=== PATIENT | male | born 1970 | race Caucasian/White ===

== ENCOUNTER 2016-08-12 07:48 | Outpatient (CLI) ==
[2016-05-21 08:44] VITALS: BMI 20.7
[2016-08-12 08:09] LABS: BASOPHILS # (AUTO) 0.1 K/uL (0-0.2); EOSINOPHILS # (AUTO) 0.5 K/ul (0.0-0.7); EOSINOPHILS % (AUTO) 7.4 % (0.0-7.0); HEMATOCRIT 40.5 % (42.0-52.0); HEMOGLOBIN 13.2 g/dl (14.0-18.0); IMMATURE GRANULOCYTE % (AUTO) 0.4 % (0.0-5.0); LYMPHOCYTES # (AUTO) 1.8 K/uL (0.60-3.4); LYMPHOCYTES % (AUTO) 25.9 (10.0-50.0); MEAN CORPUSCULAR HEMOGLOBIN 30.6 pg (27.0-31.0); MEAN CORPUSCULAR HGB CONC 32.6 (31.8-35.4); MONOCYTES # (AUTO) 0.5 K/uL (0.4-2.0); MONOCYTES % (AUTO) 7.4 (0-10); NEUTROPHILS % (AUTO) 57.9; PLATELET COUNT 277 10^3/uL (140-440); RED BLOOD COUNT 4.31 10^6/ul (4.70-6.10)
[2016-08-12 08:28] LABS: BILIRUBIN,URINE Negative (NEGATIVE); KETONES,URINE Negative (NEGATIVE); LEUKOCYTE ESTERASE ,URINE Negative (NEGATIVE); NITRITE,URINE Negative (NEGATIVE); PH,URINE 5.5 (5-9); PROTEIN,URINE Negative (NEGATIVE); URINE, BLOOD 1+ (NEGATIVE)
[2016-08-12 08:34] LABS: ADD URINE MICROSCOPIC YES
[2016-08-12 08:41] LABS: ALBUMIN 3.9 g/dL (3.4-5.0); ALBUMIN/GLOBULIN RATIO 1.3; ANION GAP 13.4; BILIRUBIN,TOTAL 0.31 mg/dL (0.00-1.20); BUN/CREATININE RATIO 22.66; CALCIUM 9.2 mg/dL (8.2-10.2); CHOL/HDL RATIO 4.8 (4.5-6.4); CREATININE 0.75 mg/dL (0.60-1.10); TOTAL PROTEIN 6.9 g/dL (6.4-8.2)
[2016-08-12 08:56] LABS: POTASSIUM 6.4 mmol/L (3.5-5.1)
== END 2016-08-12 07:49 | disposition home or self-care (01) ==
LOC: LAB 07:48
PROVIDERS: ATTEND Family Medicine
DX: E78.5 Hyperlipidemia, unspecified (principal); K21.9 Gastro-esophageal reflux disease without esophagitis; G31.2 Degeneration of nervous system due to alcohol
CPT/HCPCS: 36415; 80053; 80061; 81001; 85025

== ENCOUNTER 2016-08-16 11:23 | Outpatient (CLI) ==
[2016-05-21 08:44] VITALS: BMI 20.7
[2016-08-16 12:14] LABS: ALBUMIN 4.5 g/dL (3.4-5.0); ALBUMIN/GLOBULIN RATIO 1.36; ANION GAP 14.1; BILIRUBIN,TOTAL 0.42 mg/dL (0.00-1.20); BUN/CREATININE RATIO 13.92; CALCIUM 9.9 mg/dL (8.2-10.2); CREATININE 0.79 mg/dL (0.60-1.10); POTASSIUM 5.1 mmol/L (3.5-5.1); TOTAL PROTEIN 7.8 g/dL (6.4-8.2)
--- NOTE | 2016-08-16 13:21 | DI ---
EXAM: PA and lateral views of the chest HISTORY: Abnormal labs, dizziness COMPARISON: 07/06/2014 FINDINGS: The patient is rotated to the right. A 6 mm nodular density projects over the right lung base. No fo heladio consolidation, pleural effusion or pneumothorax is seen. The cardiomediastinal silhouette is within normal limits. Degenerative changes of the left AC joint are seen. IMPRESSION: No acute cardiopulmonary findings. 5 mm right basilar nodular density could represent a nipple shadow or pulmonary nodule. Follow-up c hest x-ray with nipple markers including PA and shallow oblique views is recommended.
== END 2016-08-16 11:24 | disposition home or self-care (01) ==
LOC: LAB 11:23
PROVIDERS: ATTEND Family Medicine
DX: E87.5 Hyperkalemia (principal); R42 Dizziness and giddiness
CPT/HCPCS: 36415; 80053; 93005; 93010

== ENCOUNTER 2016-08-19 08:32 | Outpatient (CLI) ==
[2016-05-21 08:44] VITALS: BMI 20.7
--- NOTE | 2016-08-19 10:01 | CT ---
EXAM: CT chest with contrast. HISTORY: Weight loss. Abnormal chest x-ray. COMPARISON: Chest x-ray 08/16/2016. Chest CT 07/06/2014. TECHNIQUE: Multiple axial images of the chest were obtained following intravenous administration of 75 mL of Omnipaque 350, low osmolar. Images were reformatted in the sagittal and coronal planes. FINDINGS: Nonenlarged axillary, mediastinal and hilar lymph nodes are present. Heart size is peter l. There is a trace amount of pericardial fluid. Atherosclerotic calcifications are present. There is linear consolidation within the left upper lobe extending from the posterior apex to the li ngula anteriorly which is new from prior examination. The lungs are otherwise clear without pleural effusion or pneumothorax. Limited images of the upper abdomen demonstrate a right renal cyst measuring up to 3 cm. No acute o sseous abnormality detected. IMPRESSION: 1. No pulmonary nodules seen to correspond recent radiograph, which is most likely a nipple shadow. 2. Large area of subsegmental atelectasis in the left lung. Consider a follow-up CT in 3 months fo r reassessment.
== END 2016-08-19 08:33 | disposition home or self-care (01) ==
LOC: RAD 08:32
PROVIDERS: ATTEND Family Medicine
DX: R63.4 Abnormal weight loss (principal); R53.1 Weakness; R42 Dizziness and giddiness; G31.2 Degeneration of nervous system due to alcohol

== ENCOUNTER 2016-10-24 07:29 | Outpatient (CLI) ==
[2016-05-21 08:44] VITALS: BMI 20.7
--- NOTE | 2016-10-24 08:44 | CT ---
EXAM: CT of the head without contrast History: Transit ischemic attack. Comparison: Head CT 12/21/2015 Technique: Multiplanar CT images through the head were obtained without the administration of IV co ntrast Findings: The visualized paranasal sinuses are clear in general. Stable large chronic left mastoid effusion. No acute calvarial abnormalities. Intracranially the ventricular and cisternal spaces are stable. No midline shift. No hydrocephalou s. No acute intracranial hemorrhage or abnormal extraaxial fluid collections. Extensive periventri cular and subcortical white matter hypodensities, similar to the prior study. Impression: 1. No acute intracranial hemorrhage. 2. Extensive periventricular and subcortical white matter hypodensities, similar to the prior study and most compatible with chronic small vessel ischemic disease but could obscure infarction. Consi jim correlation with brain MRI.
--- NOTE | 2016-10-24 08:47 | DI ---
EXAM: Lumbar spine five views HISTORY: Low back pain COMPARISON: 09/30/2009 TECHNIQUE: Five views lumbar spine were performed including oblique views FINDINGS: Sacroiliac joints intact. Sacral arcuate lines intact. Transitional vertebral anatomy a t the lumbosacral junction on the left. Vertebral bodies normal in height. No fracture. No sublux ation. Mild intervertebral disc space narrowing L4-L5. Moderate intervertebral disc space narrowin g L5-S1. Facet arthrosis in the lower lumbar spine. IMPRESSION: Chronic discogenic degenerative disease and facet arthrosis.
--- NOTE | 2016-10-24 08:47 | CT ---
EXAM: CT soft tissue neck without contrast HISTORY: Concern for stroke. COMPARISON: CT head same day TECHNIQUE: Serial axial images of the neck were obtained without contrast. These were viewed in mu ltiple planes. FINDINGS: Limited views of the intracranial contents are better visualized on same day CT head. Orb ital globes retrobulbar structures are normal. The paranasal sinuses are clear. The mastoid air ce lls demonstrate changes on the left better described on same day CT head. Evaluation of the vessels and arteries is very limited due to lack of contrast. There are few scatt ered nonpathologically enlarged lymph nodes. The parotid glands and submandibular glands are unrema rkable. The thyroid is unremarkable. The lung apices are clear. The osseous structures demonstrat e mild degenerative disease IMPRESSION: 1. Evaluation is very limited due to lack of contrast. No significant atherosclerotic disease is i dentified. 2. Mild degenerative disease of the cervical spine. 3. Intracranial contents and paranasal sinus changes are better evaluated on same day CT head.
== END 2016-10-24 07:30 | disposition home or self-care (01) ==
LOC: RAD 07:29
PROVIDERS: ATTEND Physician Assistant
DX: M54.5 Low back pain (principal); Z86.73 Personal history of transient ischemic attack (TIA), and cerebral infarction without residual deficits

== ENCOUNTER 2016-11-29 15:41 | Outpatient (RCR) ==
[2016-05-21 08:44] VITALS: BMI 20.7
== END 2016-12-02 ==
PROVIDERS: ATTEND Physician Assistant
DX: M62.81 Muscle weakness (generalized) (principal)

== ENCOUNTER 2016-12-29 14:00 | Outpatient (RCR) ==
[2016-05-21 08:44] VITALS: BMI 20.7
--- NOTE | 2016-12-13 09:58 | RS.OPPTEV2 ---
Date of Note: 12/12/16 Visit #: 1 Date of Evaluation: 12/12/16 Payer Source: Medicaid Treatment Diagnosis: Muscle Weakness History of Condition/Mechanism of Injury:: Patient and his reports that he has had progressive weakness in his arms and legs over the last two years. Reports more frequent falls as he has gotten weaker. Prior Level of Function.....Patient was independent with: ADL's, Self Care, Ambulation/Mobility, Community Integration/Access Functional Limitations: Self Care, ADL's, Reaching, Pushing, Pulling, Lifting, Carrying, Sitting, Standing, Bending, Squatting, Ambulation, Community Access/ Integration Current Subjective/complaints:: Patient reports weakness throughout his arms and legs. States he has recently started turning out his ankles when he walks. States the left LE seems to be worse than the right. He states he has not had a recent stroke. His reports he had a stroke when he was [age] years of age. Mr. Krishnan states he does not use anything to walk with. He has had many falls. He has difficulty ascending and descending stairs. They have 3-4 concrete steps without a rail, at the entrance of their trailer. He has to go down the steps on his bottom. Their bed is on the floor and he has difficulty getting up from the bed. He has difficulty getting out of a chair or sofa, depending on the seat height. He denies tingling or numbness in the LE's. States the legs do buckle at times. His states he has back pain 24 hours a day. He reports increased back pain and LE weakness with standing. Reports heat seems to make him weaker. Treatment Side (optional): Bilateral Medical History Medical History: CVA/TIA (at 1 years old) Hx Home Medications: Lipitor, Zantac Patient's Goals: His goal is to gain strength and improve his safety with walking. Functional Outcome Measure LE Functional Scale: 29 (29/80=63.75% impairment) - G Codes & Severity Modifier G Codes & Modifier: NA Source of G Code score: NA Observation - Observation Inspection: Mr. Krishnan presents to the department appearing fraile and with significant muscle atrophy throughout the UE's. Posture: Forward Head, Rounded Shoulders, Increased Thoracic Kyphosis, Posterior Pelvic Tilt Gait - Gait Pattern Gait Comments: Mr. Krishnan's gait is ataxic. He ambulates without an assistive device into the department. He demonstrates asymmetrical step and stride lengths. Demonstrates poor coordination of movement with ambulation. General Range of Motion: Bilateral UE shoulder flexion and abduction to 95 degrees, full AROM of bilateral elbows and wrists. Bilateral hands exhibit atrophy, he exibits active flexion and extension, but he has to use the other hand to put his fingers into end range flexion to make a fist. Patient is able to complete 75% of normal motion actively. He demonstrates full PROM with no spasticity. Muscle Strength: Bilateral UE strength is generally 3+ to 4-/5 throughout. Neither hand registers with rail splitter strength testing. Bilateral hip strength generally -4/5. Left knee and ankle 3+/5. Right knee 4/5, ankle 4-/5. Trunk strength 4/5. Sensation - Sensation Right Upper Extremity: Intact/Normal Left Upper Extremity: Intact/Normal Right Lower Extremity: Intact/Normal Left Lower Extremity: Intact/Normal Balance - Sitting Balance Static Sitting Balance: Fair (+) Dynamic Sitting Balance: Fair (+) - Standing Balance Static Standing Balance: Fair (-) Dynamic Standing Balance: Fair (-) Coordination - Tests Bilateral Finger to Nose: Moderate Deviation Heel to Santana: Moderate Deviation Toe Tapping: Mild Deviation Additional Comments: Additional Comments: Patient given a straight cane at the proper height for him to use with ambulation. Patient demonstrates much more steady gait with use of cane. Interventions - Exercise/Activities/Manual Therapy Exercises/Activities: No exercises given today. Manual Therapy: NA - Charges Total Direct Minutes: 50 min Total Treatment Time: 50 mins Procedures billed for this date of service:: [facility] Assessment Assessment: Mr. Krishnan presents to therapy with a diagnosis of generalized muscle weakness. He and his report progressive muscle weakness and decline in his functional ability over the last two years. He falls frequently. He exibits generalized muscle wasting throughout both UE's and displays weakness throughout the UE's, trunk, and LE's. His transfers and ambulation are difficult for him due to significant weakness and decreased muscle control and coordination. He exhibits most likely, a neurological progressive process, that has not been diagnosed. He will benefit from education on safety with all mobility and exercises to improve strength throughout to increase his independence and safety with transfers and ambulation. Patient Education: Education of diagnosis, Body/Joint mechanics, Home Safety, Activity Modification, Education of Plan of Care Rehab Potential: Fair Short Term Goals Goal #1: Static standing posture improved to Fair. Goal to be met by: 12/27/16 Goal #2: Bilateral hip strength 4/5. Goal to be met by: 12/27/16 Goal #3: Bilateral ankle strength 4/5. Goal to be met by: 12/27/16 [facility] Goals Goal #1: Pt knows HEP and to continue ex's to maintain functional level at D/C. Goal to be met by: 02/11/17 Goal #2: Pt to amb. with AAD with good safety, community distances. Goal to be met by: 02/11/17 Goal #3: Pt to report no falls with ambulation. Goal to be met by: 02/11/17 Goal #4: Muscle strength improved for pt to perform ADL's with min. difficulty. Goal to be met by: 02/11/17 Plan - Treatment to be Provided Procedures: Therapeutic Exercises, Therapeutic Activity, Gait Training, Neuromuscular Rehab, Patient Education Modalities: Electrical Stimulation (for neuromuscular facilitation) - Treatment Plan Frequency: 3 X week Duration: 8 weeks ORDER # VISITS AND/OR THROUGH DATE: 02/11/17 - Treatment Code (1) Muscle weakness (generalized) Comments: M62.81 (2) Gait abnormality Comments: R26.9 (3) Decreased coordination Comments: R27.9 (4) Impaired functional mobility, balance, gait, and endurance Comments: Z74.09
--- NOTE | 2016-12-20 15:24 | RS.OPPTDN ---
Subjective Date of Note: 12/15/16 Visit #: 2 Date of Evaluation: 12/12/16 Payer Source: Medicaid Treatment Diagnosis: Muscle Weakness Current Subjective/complaints:: Patient's says Gerardo is willing to do any exercise to make him stronger. She says he struggles to get up off of the floor and she has to help him with many tasks at home. She says he does use the "hurrycane" that was loaned to him. Pain Assessment - Pain Description Pain Location: does not report Interventions - Exercise/Activities/Manual Therapy Exercises/Activities: Patient begins with supine exercises of: QS, SAQ, alternate LE lift, bridging, DF with red tband, trunk rotation all 2x10. Sitting: LAQ, hip flexion, toe taps, 1# wand for bilateral shoulder flexion, yellow tband for scap retraction, and shoulder shrugs. All x 10 reps. Total minutes of Exercise: 32 Manual Therapy: NA - Charges Total Direct Minutes: 32 Total Treatment Time: 32 Procedures billed for this date of service:: ex2 Assessment: Patient very cooperative with HEP and very willing to perform any activity to improve his condition. His is very involved and assists him with bed mobs/transfers since his mattress is on the floor. He was able to perform all therex slowly and denies difficulty with exception of general muscle fatigue. He ambulates with hurrycane in the R hand and needs x 1 for sit to stand. Patient Education: Education of diagnosis, Body/Joint mechanics, Home Exercise Program, Home Safety, Activity Modification, Education of Plan of Care Patient demonstrates compliance with HEP?: Yes Short Term Goals Goal #1: Static standing posture improved to Fair. Goal to be met by: 12/27/16 Goal #2: Bilateral hip strength 4/5. Goal to be met by: 12/27/16 Goal #3: Bilateral ankle strength 4/5. Goal to be met by: 12/27/16 [facility] Goals Goal #1: Pt knows HEP and to continue ex's to maintain functional level at D/C. Goal to be met by: 02/11/17 Goal #2: Pt to amb. with AAD with good safety, community distances. Goal to be met by: 02/11/17 Goal #3: Pt to report no falls with ambulation. Goal to be met by: 02/11/17 Goal #4: Muscle strength improved for pt to perform ADL's with min. difficulty. Goal to be met by: 02/11/17 Plan PLAN OF CARE EXPIRES ON:: 02/11/17 ORDER # VISITS AND/OR THROUGH DATE: 02/11/17 PLAN: Progress Exercises
--- NOTE | 2016-12-20 15:41 | RS.OPPTDN ---
Subjective Date of Note: 12/20/16 Visit #: 3 Date of Evaluation: 12/12/16 Payer Source: Medicaid Treatment Diagnosis: Muscle Weakness Current Subjective/complaints:: Patient says he was able to get up off of his bed (on the floor) without the help from his . His says she sees he is walking faster and better now and is working on exercises several times per day. Pain Assessment - Pain Description Pain Location: does not report Interventions - Exercise/Activities/Manual Therapy Exercises/Activities: Patient begins with supine exercises of: QS, SAQ added 1# , alternate LE lift added 1# each leg, bridging, DF with red tband, ham curls with red tband, trunk rotation with red tband, SLR all 2x10. Sitting: LAQ 1#, hip flexion1#, toe taps, 2# wand for bilateral shoulder flexion, yellow tband for scap retraction, and shoulder shrugs. All x 10 reps. Discussion and instruction on HEP with patient and . Total minutes of Exercise: 38 Manual Therapy: NA - Charges Total Direct Minutes: 38 Total Treatment Time: 38 Procedures billed for this date of service:: ex3 Assessment: Patient kirstin improved function at home with bed mobs and transfers. Observable improvement in waiting room today with getting up from chair x 1 time with less difficulty. He ambulates more steadily back to our department and was able to progress with some weight with activities today. Will advance to stationary bike and UBE next session. Patient's very pleased. Patient Education: Education of diagnosis, Body/Joint mechanics, Home Exercise Program, Home Safety, Activity Modification, Education of Plan of Care Patient demonstrates compliance with HEP?: Yes Short Term Goals Goal #1: Static standing posture improved to Fair. Goal to be met by: 12/27/16 Goal #2: Bilateral hip strength 4/5. Goal to be met by: 12/27/16 Goal #3: Bilateral ankle strength 4/5. Goal to be met by: 12/27/16 [facility] Goals Goal #1: Pt knows HEP and to continue ex's to maintain functional level at D/C. Goal to be met by: 02/11/17 Goal #2: Pt to amb. with AAD with good safety, community distances. Goal to be met by: 02/11/17 Goal #3: Pt to report no falls with ambulation. Goal to be met by: 02/11/17 Goal #4: Muscle strength improved for pt to perform ADL's with min. difficulty. Goal to be met by: 02/11/17 Plan PLAN OF CARE EXPIRES ON:: 02/11/17 ORDER # VISITS AND/OR THROUGH DATE: 02/11/17 PLAN: Progress Exercises
--- NOTE | 2016-12-22 15:08 | RS.OPPTDN ---
Subjective Date of Note: 12/22/16 Visit #: 4 Date of Evaluation: 12/12/16 Payer Source: Medicaid Treatment Diagnosis: Muscle Weakness Current Subjective/complaints:: Patient's says Gerardo continues to work on HEP, plus other exercises that he does with his arms. Gerardo denies falls since he has received his cane. Pain Assessment - Pain Description Pain Location: does not report Interventions - Exercise/Activities/Manual Therapy Exercises/Activities: Patient begins with supine exercises of: QS, SAQ added 1 1/2#, alternate LE lift added 1 1/2# each leg, bridging, DF with red tband, ham curls with red tband, trunk rotation with red tband, SLR all 2x10. Sitting: LAQ 1 1/2#, hip flexion 1 1/2#, toe taps, 2# wand for bilateral shoulder flexion , red tband for scap retraction, and shoulder shrugs. All x 10 reps. Red tband bilateral shoulder horizontal abd x 10 reps. Stationary bike x 5 mins for /retro with assistance for foot pedals (feet coming out intermittently and cues to scoot back into seat several times). Total minutes of Exercise: 38 Manual Therapy: NA - Charges Total Direct Minutes: 38 Total Treatment Time: 38 Procedures billed for this date of service:: ex3 Assessment: Patient progressing with all exercises well. Cues required on stationary bike to continue to scoot back and to repositioning feet into pedals. Patient Education: Education of diagnosis, Body/Joint mechanics, Home Exercise Program, Home Safety, Activity Modification, Education of Plan of Care Patient demonstrates compliance with HEP?: Yes Short Term Goals Goal #1: Static standing posture improved to Fair. Goal to be met by: 12/27/16 Goal #2: Bilateral hip strength 4/5. Goal to be met by: 12/27/16 Goal #3: Bilateral ankle strength 4/5. Goal to be met by: 12/27/16 [facility] Goals Goal #1: Pt knows HEP and to continue ex's to maintain functional level at D/C. Goal to be met by: 02/11/17 Goal #2: Pt to amb. with AAD with good safety, community distances. Goal to be met by: 02/11/17 Goal #3: Pt to report no falls with ambulation. Goal to be met by: 02/11/17 Goal #4: Muscle strength improved for pt to perform ADL's with min. difficulty. Goal to be met by: 02/11/17 Plan PLAN OF CARE EXPIRES ON:: 02/11/17 ORDER # VISITS AND/OR THROUGH DATE: 02/11/17 PLAN: Progress Exercises
--- NOTE | 2016-12-27 15:48 | RS.OPPTDN ---
Subjective Date of Note: 12/27/16 Visit #: 5 Date of Evaluation: 12/12/16 Payer Source: Medicaid Treatment Diagnosis: Muscle Weakness Current Subjective/complaints:: Patient and continue to say Gerardo is improving with strength and bal with exercises. He is pleased with his progress. Pain Assessment - Pain Description Pain Location: does not report Interventions - Exercise/Activities/Manual Therapy Exercises/Activities: Patient begins with supine exercises of: QS, SAQ added 2# , alternate LE lift added 2# each leg, bridging, DF with green tband, ham curls with red tband, trunk rotation progressed to green tband, SLR (2x5)all 2x10. Sitting: LAQ 1 1/2#, hip flexion 1 1/2#,UBE x 5 mins for/retro. Stationary bike x 6 mins for/retro with frequent assistance for foot pedals (feet coming out intermittently and cues to scoot back into seat several times). Total minutes of Exercise: 38 Manual Therapy: NA - Charges Total Direct Minutes: 38 Total Treatment Time: 38 Procedures billed for this date of service:: ex3 Assessment: Patient progressing well with all supine therex and trunk exercises. He is advancing with bal at home and consistently performs HEP. He is ambulating around the department without cane and maintains bal well with increasing amb speed. Patient Education: Education of diagnosis, Body/Joint mechanics, Home Exercise Program, Home Safety, Activity Modification, Education of Plan of Care Patient demonstrates compliance with HEP?: Yes Short Term Goals Goal #1: Static standing posture improved to Fair. Goal to be met by: 12/27/16 Goal #2: Bilateral hip strength 4/5. Goal to be met by: 12/27/16 Goal #3: Bilateral ankle strength 4/5. Goal to be met by: 12/27/16 [facility] Goals Goal #1: Pt knows HEP and to continue ex's to maintain functional level at D/C. Goal to be met by: 02/11/17 Goal #2: Pt to amb. with AAD with good safety, community distances. Goal to be met by: 02/11/17 Goal #3: Pt to report no falls with ambulation. Goal to be met by: 02/11/17 Goal #4: Muscle strength improved for pt to perform ADL's with min. difficulty. Goal to be met by: 02/11/17 Plan PLAN OF CARE EXPIRES ON:: 02/11/17 ORDER # VISITS AND/OR THROUGH DATE: 02/11/17 PLAN: Progress Exercises
--- NOTE | 2016-12-29 15:02 | RS.OPPTDN ---
Subjective Date of Note: 12/29/16 Visit #: 6 Date of Evaluation: 12/12/16 Payer Source: Medicaid Treatment Diagnosis: Muscle Weakness Current Subjective/complaints:: Patient and state patient is working on HEP at home and patient feels he is getting stronger. C/c is weakness in the LE that prevents him from going up and down steps. Both report patient has to crawl on hands and knees to go up steps into house. Pain Assessment - Pain Description Pain Location: does not report Interventions - Exercise/Activities/Manual Therapy Exercises/Activities: Patient begins with supine exercises of: QS, SAQ 1 1/2#, alternate LE lift 1 1/2# each leg, bridging. Green theraband for DF, ham curls, and trunk rotation. SLR 2s/10reps each. Sitting: LAQ 1 1/2#, hip flexion 1 1/ 2#. Stationary bike x 4 1/2 mins for/retro with frequent assistance for foot pedals. Began step-up and down on 4" stepper board with use of handrail and min assist of one. Also forward lunge and push-off with foot on stepper board, 3s/ 5reps each. Total minutes of Exercise: 39mins Manual Therapy: NA HOME EXERCISE PROGRAM: QS, SLR, SAQ, LAQ, Green theraband for trunk rotation. - Objective Findings Observations,measurements,etc.: Patient demos marked quad weakness whle performing on stepper board. He "locks" knee into hyperextension when ascending or decending steps. Patient need verbal cues for safety as he is impulsive. - Charges Total Direct Minutes: 39mins Total Treatment Time: 39mins Procedures billed for this date of service:: EX3 Assessment: Discussed POC with PT and we will continue with POC to increase strength and safety with functional activities. Patient Education: Home Exercise Program, Home Safety, Activity Modification Patient demonstrates compliance with HEP?: Yes Short Term Goals Goal #1: Static standing posture improved to Fair. Goal to be met by: 12/27/16 Goal #2: Bilateral hip strength 4/5. Goal to be met by: 12/27/16 Goal #3: Bilateral ankle strength 4/5. Goal to be met by: 12/27/16 [employer] Goals Goal #1: Pt knows HEP and to continue ex's to maintain functional level at D/C. Goal to be met by: 02/11/17 Progress towards goal: Progressing Goal #2: Pt to amb. with AAD with good safety, community distances. Goal to be met by: 02/11/17 Goal #3: Pt to report no falls with ambulation. Goal to be met by: 02/11/17 Goal #4: Muscle strength improved for pt to perform ADL's with min. difficulty. Goal to be met by: 02/11/17 Plan PLAN OF CARE EXPIRES ON:: 02/11/17 ORDER # VISITS AND/OR THROUGH DATE: 02/11/17 PLAN: Progress Exercises
== END 2017-01-02 ==
PROVIDERS: ATTEND Physician Assistant
DX: M62.81 Muscle weakness (generalized) (principal)

== ENCOUNTER 2017-01-24 13:00 | Outpatient (RCR) ==
[2016-05-21 08:44] VITALS: BMI 20.7
--- NOTE | 2017-01-03 16:15 | RS.OPPTDN ---
Subjective Date of Note: 01/03/17 Visit #: 7 Date of Evaluation: 12/12/16 Payer Source: Medicaid Treatment Diagnosis: Muscle Weakness Current Subjective/complaints:: Patient says that he is not needing to use his cane in his home now. Reports he still has trouble going up/down steps, but where they were getting ready to move, it is level. He says he feels stronger and able to walk better. Patient's says he performs HEP several times daily. Pain Assessment - Pain Description Pain Location: does not report any pain Interventions - Exercise/Activities/Manual Therapy Exercises/Activities: Patient begins with Stationary bike x 7 mins for/retro with frequent assistance for foot pedals. Supine exercises of: QS, SAQ increased to 2#, alternate LE lift 2# each leg, bridging. Green theraband for DF , ham curls, and trunk rotation. SLR 2s/10reps each. Sitting: LAQ increased to 2#, hip flexion increased to 2#. UBE x 4 mins for/retro with 1# on each wrist. Continued with step-up and down on 4" stepper board with use of handrail and min assist of one. Also forward lunge and push-off with foot on stepper board, 3s/5reps each. Marching at railing 2x10, side stepping x 6, Total minutes of Exercise: 53 Manual Therapy: NA HOME EXERCISE PROGRAM: QS, SLR, SAQ, LAQ, Green theraband for trunk rotation. - Charges Total Direct Minutes: 53 Total Treatment Time: 53 Procedures billed for this date of service:: ex4 Assessment: Patient very compliant with HEP. He is progressing with standing/ bal exercises. Trunk strength is slightly better, but may improve with further consistent HEP. Patient Education: Education of diagnosis, Body/Joint mechanics, Home Exercise Program, Home Safety, Activity Modification, Education of Plan of Care Patient demonstrates compliance with HEP?: Yes Short Term Goals Goal #1: Static standing posture improved to Fair. Goal to be met by: 12/27/16 Progress towards Goal:: Progressing Goal #2: Bilateral hip strength 4/5. Goal to be met by: 12/27/16 Progress towards Goal:: Progressing Goal #3: Bilateral ankle strength 4/5. Goal to be met by: 12/27/16 Retail Loss Prevention Officer Goals Goal #1: Pt knows HEP and to continue ex's to maintain functional level at D/C. Goal to be met by: 02/11/17 Progress towards goal: Progressing Goal #2: Pt to amb. with AAD with good safety, community distances. Goal to be met by: 02/11/17 Progress towards goal: Progressing Goal #3: Pt to report no falls with ambulation. Goal to be met by: 02/11/17 Progress towards goal: Progressing Goal #4: Muscle strength improved for pt to perform ADL's with min. difficulty. Goal to be met by: 02/11/17 Plan PLAN OF CARE EXPIRES ON:: 02/11/17 ORDER # VISITS AND/OR THROUGH DATE: 02/11/17 PLAN: Progress Exercises
--- NOTE | 2017-01-05 15:10 | RS.CXNS ---
Date of scheduled appointment: 01/05/17 Type: Cancel Reason for Cancel/NS: no reason given
--- NOTE | 2017-01-10 16:04 | RS.OPPTDN ---
Subjective Date of Note: 01/10/17 Date of Evaluation: 12/12/16 Payer Source: Medicaid Treatment Diagnosis: Muscle Weakness Current Subjective/complaints:: Patient's says Gerardo was able to get in/out of the shower yesterday with significantly less difficulty. She says they will be moving to an apartment in which he will not have to ascend/descend steps and will be easier to Gerardo. Gerardo remains eager to further progress exercises. Pain Assessment - Pain Description Pain Location: reports back pain today Balance System Training - Level 2 Dynamic Weight Shifting #1 Training Mode: Weight Shift Skill Level (1-3): 1 Platform Stability Level (1-12): static Time: 1 to 1.5 mins Reps: 4 Interventions - Exercise/Activities/Manual Therapy Exercises/Activities: Patient begins with Stationary bike x 7 mins for/retro with frequent assistance for foot pedals. Began Balance [employer] [place] for weight shift laterally and anter/post x 3 sets of 1-1.5 mins each easy skill level. Limits of stability easy skill level. Standing at railing: marching, hip abd, shoulder shrugs and scap adduction AA, hip extension, side stepping along railing x 6, retro ambulation and exaggerated forward ambulation with hip flexion x 4 using railing support. Supine exercises of: QS, SAQ 2 1/2#, alternate LE lift 2 1/2# each leg, bridging. Green theraband for DF, ham curls, and trunk rotation. SLR 2s/10reps each. Sitting: LAQ increased to 2#, hip flexion increased to 2#. Total minutes of Exercise: 45 Manual Therapy: NA HOME EXERCISE PROGRAM: QS, SLR, SAQ, LAQ, Green theraband for trunk rotation. - Charges Total Direct Minutes: 45 Total Treatment Time: 45 Procedures billed for this date of service:: ex3 Assessment: Patient progressing to Balance [place] to assist with strengthening the quads for ant/software quality tester and laterally. He improved with score and understanding the concept as time passed, but was not able to shift his weight posteriorally without forward flexion at the trunk. When stepping off of the unit, he lowered himself onto the base with the L knee and then stood up with handles and assistance from NEIGHBORHOOD COORDINATOR. Patient Education: Education of diagnosis, Body/Joint mechanics, Home Exercise Program, Home Safety, Activity Modification, Education of Plan of Care Patient demonstrates compliance with HEP?: Yes Short Term Goals Goal #1: Static standing posture improved to Fair. Goal to be met by: 12/27/16 Progress towards Goal:: Progressing Goal #2: Bilateral hip strength 4/5. Goal to be met by: 12/27/16 Progress towards Goal:: Progressing Goal #3: Bilateral ankle strength 4/5. Goal to be met by: 12/27/16 Detention Goals Goal #1: Pt knows HEP and to continue ex's to maintain functional level at D/C. Goal to be met by: 02/11/17 Progress towards goal: Progressing Goal #2: Pt to amb. with AAD with good safety, community distances. Goal to be met by: 02/11/17 Progress towards goal: Progressing Goal #3: Pt to report no falls with ambulation. Goal to be met by: 02/11/17 Progress towards goal: Progressing Goal #4: Muscle strength improved for pt to perform ADL's with min. difficulty. Goal to be met by: 02/11/17 Plan PLAN OF CARE EXPIRES ON:: 02/11/17 ORDER # VISITS AND/OR THROUGH DATE: 02/11/17 PLAN: Progress Exercises
--- NOTE | 2017-01-13 15:19 | RS.OPPTDN ---
Subjective Date of Note: 01/13/17 Visit #: 8 Date of Evaluation: 12/12/16 Payer Source: Medicaid Treatment Diagnosis: Muscle Weakness Current Subjective/complaints:: Patient says he saw his neurosurgeon in regards to his back yesterday, but says he does not want to assess or treat him for his back until he is finished with PT. He does c/o back pain today during standing exercises. Pain Assessment - Pain Description Pain Location: reports back pain today Interventions - Exercise/Activities/Manual Therapy Exercises/Activities: Patient begins with Stationary bike x 7 mins for/retro with frequent assistance for foot pedals. Supine: SAQ 1# for LLE, 3# for R, bridging, trunk rotation with green tband, ball squeezes, Lower ab crunch. LAQ 1# LLE, 3# RLE x 15. Shoulder shrugs and UBE for/retro x 4 mins. Standing at railing: marching, hip abd, shoulder shrugs and scap adduction AA, hip extension, side stepping along railing x 6, retro ambulation and exaggerated forward ambulation with hip flexion x 4 using railing support. Step up/down board 2x4. Total minutes of Exercise: 40 Manual Therapy: NA HOME EXERCISE PROGRAM: QS, SLR, SAQ, LAQ, Green theraband for trunk rotation. - Charges Total Direct Minutes: 40 Total Treatment Time: 40 Procedures billed for this date of service:: ex3 Assessment: Patient progressing with dynamic exercises and trunk strengthening, but does remain with impulsiveness with transfers and amb. At times in the department, he amb independently. He maintains hyperextension to the R knee and more weakness overall to the hip, knee, and ankle in the L. He will have one more week of PT approved, then will follow up with MD regarding his back. Patient Education: Education of diagnosis, Body/Joint mechanics, Home Exercise Program, Home Safety, Activity Modification, Education of Plan of Care Patient demonstrates compliance with HEP?: Yes Short Term Goals Goal #1: Static standing posture improved to Fair. Goal to be met by: 12/27/16 Progress towards Goal:: Progressing Goal #2: Bilateral hip strength 4/5. Goal to be met by: 12/27/16 Progress towards Goal:: Progressing Goal #3: Bilateral ankle strength 4/5. Goal to be met by: 12/27/16 Skilled Nursing Goals Goal #1: Pt knows HEP and to continue ex's to maintain functional level at D/C. Goal to be met by: 02/11/17 Progress towards goal: Progressing Goal #2: Pt to amb. with AAD with good safety, community distances. Goal to be met by: 02/11/17 Progress towards goal: Progressing Goal #3: Pt to report no falls with ambulation. Goal to be met by: 02/11/17 Progress towards goal: Progressing Goal #4: Muscle strength improved for pt to perform ADL's with min. difficulty. Goal to be met by: 02/11/17 Plan PLAN OF CARE EXPIRES ON:: 02/11/17 ORDER # VISITS AND/OR THROUGH DATE: 02/11/17 PLAN: Progress Exercises
--- NOTE | 2017-01-17 14:19 | RS.OPPTDN ---
Subjective Date of Note: 01/17/17 Visit #: 10 Date of Evaluation: 12/12/16 Payer Source: Medicaid Treatment Diagnosis: Muscle Weakness Current Subjective/complaints:: Patient reports both knees popped yesterday while getting up from his chair. He says it did not cause him to fall. He and his both continue to say that he is improving with getting around at home and other ADLs. Pain Assessment - Pain Description Pain Location: reports back pain today Interventions - Exercise/Activities/Manual Therapy Exercises/Activities: Patient begins with Stationary bike x 6 mins for/retro with frequent assistance for foot pedals and prompting to go backwards. Supine : SAQ 1# for LLE, 3# for R, bridging, trunk rotation with green tband, ball squeezes, Lower ab crunch with 3# on RLE and 1# on LLE. LAQ 1# LLE, 3# RLE x 15. Red tband for L ankle DF/PF/EV/IV, Green for R ankle. Green tband for hip abd in hooklying 2x10. Shoulder shrugs and UBE for/retro x 4 mins with 2# on L UE and 3# on RLE. 2# wand exercises in sitting for shoulder flexion/ext and red tband for scap retraction with tactile cues on correctiveness. Alternate Toe taps. Leg press 15# 2x10 with cues to not fully extend the knees. 30# 2x10 reps. Total minutes of Exercise: 53 Manual Therapy: NA HOME EXERCISE PROGRAM: QS, SLR, SAQ, LAQ, Green theraband for trunk rotation. - Charges Total Direct Minutes: 53 Total Treatment Time: 53 Procedures billed for this date of service:: ex4 Assessment: Patient progressing slowly with all weights and bal, advancing with leg press, transfers more slowly and with slightly more caution. He maintains no falls since beginning therapy, however he has "lowered himself down" on the L knee (being his weak side) at PT window forgetting to switch sides onto the strong side. Patient Education: Education of diagnosis, Body/Joint mechanics, Home Exercise Program, Home Safety, Activity Modification, Education of Plan of Care Patient demonstrates compliance with HEP?: Yes Short Term Goals Goal #1: Static standing posture improved to Fair. Goal to be met by: 12/27/16 Progress towards Goal:: Met Goal #2: Bilateral hip strength 4/5. Goal to be met by: 12/27/16 Progress towards Goal:: Progressing Goal #3: Bilateral ankle strength 4/5. Goal to be met by: 12/27/16 Progress towards Goal:: Progressing Skilled Nursing Goals Goal #1: Pt knows HEP and to continue ex's to maintain functional level at D/C. Goal to be met by: 02/11/17 Progress towards goal: Progressing Goal #2: Pt to amb. with AAD with good safety, community distances. Goal to be met by: 02/11/17 Progress towards goal: Progressing Goal #3: Pt to report no falls with ambulation. Goal to be met by: 02/11/17 Progress towards goal: Progressing Goal #4: Muscle strength improved for pt to perform ADL's with min. difficulty. Goal to be met by: 02/11/17 Plan PLAN OF CARE EXPIRES ON:: 02/11/17 ORDER # VISITS AND/OR THROUGH DATE: 02/11/17 PLAN: Progress Exercises (Patient to continue x 2 more sessions per order and max insurance allowance. Patient has indicated he may not be able to come on his next appt this week due to family illness.)
--- NOTE | 2017-01-19 16:39 | RS.OPPTDN ---
Subjective Date of Note: 01/19/17 Visit #: 11 Date of Evaluation: 12/12/16 Payer Source: Medicaid Treatment Diagnosis: Muscle Weakness Current Subjective/complaints:: Patient says they are still trying to find a place to move and this option will have better entrance access. He denies having any problems getting in/out of the car and admits substantial improvement at home with ADLs. Pain Assessment - Pain Description Pain Location: reports L knee popped yesterday, but did not provoke a fall. Balance System Training - Level 1 Postural Stability/Symmetry #1 Training Mode: Weight Shift Training Stance: Normal Time: 1.5 mins x 4 - Level 2 Dynamic Weight Shifting #1 Training Mode: Limits of Stability Skill Level (1-3): 1: attempted, unable to shift L and posterior Interventions - Exercise/Activities/Manual Therapy Exercises/Activities: Patient begins standing at railing with 1 1/2# ankle weights for hip flexion, hip abd, ham curls 2x10, side stepping 4x5. Step up/ down board and partial lunge on step board for the R 4x5. Balance computer technology trainer for weight shift multiple reps approx 1 to 1 1/2 mins. Standing at railing for wall push ups, bilateral wall slides, standing on balance computer technology trainer foam for weight shifting A/P, L to R. Leg presses for 15, then 30# bilaterally 3/10 each. UBE x 6 mins for/retro with 1 1/2# each hand. Total minutes of Exercise: 38 Manual Therapy: NA HOME EXERCISE PROGRAM: QS, SLR, SAQ, LAQ, Green theraband for trunk rotation. - Charges Total Direct Minutes: 38 Total Treatment Time: 38 Procedures billed for this date of service:: neuro 2, ex1 Assessment: Upon leaving department, patient had lowered himself to the floor onto the L LE. Patient was assisted up with cane by EDI MANAGER. He denies being hurt and admits he does this frequently. Patient assisted to car by EDI MANAGER to insure no fall. Patient did demo improvement per weight shifting on Balance computer technology trainer from 54% to 78% today. Patient Education: Education of diagnosis, Body/Joint mechanics, Home Exercise Program, Home Safety, Activity Modification, Education of Plan of Care Patient demonstrates compliance with HEP?: Yes Short Term Goals Goal #1: Static standing posture improved to Fair. Goal to be met by: 12/27/16 Progress towards Goal:: Met Goal #2: Bilateral hip strength 4/5. Goal to be met by: 12/27/16 Progress towards Goal:: Progressing Goal #3: Bilateral ankle strength 4/5. Goal to be met by: 12/27/16 Progress towards Goal:: Progressing Floor Coverer Apprentice Goals Goal #1: Pt knows HEP and to continue ex's to maintain functional level at D/C. Goal to be met by: 02/11/17 Progress towards goal: Progressing Goal #2: Pt to amb. with AAD with good safety, community distances. Goal to be met by: 02/11/17 Progress towards goal: Progressing Goal #3: Pt to report no falls with ambulation. Goal to be met by: 02/11/17 Progress towards goal: Progressing Goal #4: Muscle strength improved for pt to perform ADL's with min. difficulty. Goal to be met by: 02/11/17 Plan PLAN OF CARE EXPIRES ON:: 02/11/17 ORDER # VISITS AND/OR THROUGH DATE: 02/11/17 PLAN: Progress Exercises (continue x 1 more session)
--- NOTE | 2017-01-24 16:09 | RS.OPPTDC ---
Date of Discharge: 01/24/17 Date of Evaluation: 12/12/16 Number of Visits: 12 Treatment Diagnosis: Muscle Weakness Current Level of Function: Patient able to make meals for himself, ambulate, transfer, and assist with getting up from the floor with improved ease. Current Complaints/Gains: Patient and confirm a fall yesterday over a large rock. Patient says he was able to get back up off of the ground without assistance and expresses she is quite pleased of this. Functional Outcome Measure LE Functional Scale: 36 - G Codes & Severity Modifier G Codes & Modifier: na Source of G Code score: na Gait - Gait Pattern General Gait Pattern Observation: Ataxic Gait (Patient previously ambulated impulsively, but does so now less. He hyperextends the R knee and intermittently amb with "hurrycane." ), Decrease Stride Lngth (L) Interventions - Exercise/Activities/Manual Therapy Exercises/Activities: Patient begins with stationary bike with improved control allowing no assistance now from SAMPLE GRINDER besides helping him on the device. For/ retro x 7 mins. Leg presses for 15, then 30# bilaterally 3/10 each. UBE x 6 mins for/retro with 1 1/2# each hand. Supine for QS, SAQ 3# (R), 1 1/2# (L), ham curls/DF/EV/PF/IV, Trunk rotation with green tband, ball squeezes, bridging , lower abdominal crunches. All 2/15 reps. SLR x 8 reps. Discussion on advancing HEP and reassessment for LE Functional Index and encouraging safe transfers and ambulation. Total minutes of Exercise: 43 Manual Therapy: NA HOME EXERCISE PROGRAM: QS, SLR, SAQ, LAQ, Green theraband for trunk rotation. - Charges Total Direct Minutes: 43 Total Treatment Time: 43 Procedures billed for this date of service:: ex3 Assessment Assessment: Patient has advanced per subjective reports of himself and . He is demo improved transfers with pushing up from surface and performing more ADLs with less difficulty. Gait has slowed some. He did not have any falls throughout therapy except yesterday at home tripping over a large rock. Although he fell, and Gerardo are very satisfied that he was able to raise himself up without any help. He is also able to walk between rooms more safely without his cane. Patient Education: Education of diagnosis, Body/Joint mechanics, Home Exercise Program, Home Safety, Activity Modification, Education of Plan of Care Rehab Potential: Fair Short Term Goals Goal #1: Static standing posture improved to Fair. Goal to be met by: 12/27/16 Progress towards Goal:: Met Goal #2: Bilateral hip strength 4/5. Goal to be met by: 12/27/16 Progress towards Goal:: Met Goal #3: Bilateral ankle strength 4/5. Goal to be met by: 12/27/16 Progress towards Goal:: Met Loom Mechanic Goals Goal #1: Pt knows HEP and to continue ex's to maintain functional level at D/C. Goal to be met by: 02/11/17 Progress towards goal: Met Goal #2: Pt to amb. with AAD with good safety, community distances. Goal to be met by: 02/11/17 Progress towards goal: Partially Met (recently met up until yesterday) Goal #3: Pt to report no falls with ambulation. Goal to be met by: 02/11/17 Progress towards goal: Progressing Goal #4: Muscle strength improved for pt to perform ADL's with min. difficulty. Goal to be met by: 02/11/17 Progress towards goal: Met (per patient agreed) Plan Reason for Discharge:: Maximum Potential Met (max approval from insurance allowance. Patient and consistently perform HEP independently.)
== END 2017-02-02 ==
PROVIDERS: ATTEND Physician Assistant
DX: M62.81 Muscle weakness (generalized) (principal)

== ENCOUNTER 2017-08-26 21:45 | Outpatient (CLI) ==
[2016-05-21 08:44] VITALS: BMI 20.7
== END 2017-08-26 21:46 | disposition short-term general hospital (02) ==
LOC: AMBL 21:45
PROVIDERS: ATTEND Emergency Medicine
DX: R10.30 Lower abdominal pain, unspecified (principal)

== ENCOUNTER 2018-04-23 07:26 | Outpatient (CLI) ==
[2018-04-23 08:10] VITALS: BMI 18.7
== END 2018-04-23 07:37 | disposition short-term general hospital (02) ==
LOC: AMBL 07:26
PROVIDERS: ATTEND Internal Medicine
DX: R10.9 Unspecified abdominal pain (principal)

== ENCOUNTER 2018-04-23 07:58 | Emergency (ER) ==
[2018-04-23 08:10] VITALS: BP 122/76; TEMP 98.1; BMI 18.7
--- NOTE | 2018-04-23 09:09 | CT ---
EXAM: CT of the abdomen pelvis without contrast History: Abdominal pain. Technique: Multiplanar CT images through the abdomen pelvis were obtained without the administration of IV contrast Findings: Lung bases are clear. No acute osseous abnormalities. No discrete gallstones identified by CT. No focal liver or splenic lesions. No peripancreatic infla mmation. Adrenal glands are unremarkable. 3.6 cm cyst within the right kidney. There are a few rig ht renal calculi with the largest measuring 4 mm. No ureteral calculi and no hydronephrosis. No madalyn l obstruction. The appendix is not dilated or inflamed. No bladder wall thickening. No free air an d no ascites. No perirectal inflammation. Prostate is not enlarged. Impression: 1. No acute intra-abdominal or pelvic process. 2. Simple right renal cyst. 3. Nonobstructing right nephrolithiasis
--- NOTE | 2018-04-23 09:26 | US ---
EXAM: ULTRASOUND ABDOMEN LIMITED HISTORY: Abdominal pain FINDINGS: Ultrasound abdomen, limited. Waters-scale ultrasound and color Doppler was performed. Live r size was measured within normal limits at 10.3 cm. Increased sound attenuation by the liver parenc hyma is consistent with fatty infiltration. No focal hepatic lesion or evidence of intrahepatic bilia ry dilatation was identified. The main portal vein is patent and hepatopedal. There is diffuse posterior acoustic shadowing within the gallbladder fossa consistent with cholelithi asis. The gallbladder wall appears thickened visually although was measured at 0.16 cm which is with in normal limits. Common bile duct diameter was 0.27 cm, within normal limits. No definite ascites. Visualized pancreas was within normal limits. There is a simple right renal cortical cyst measuring 3.2 cm. IMPRESSION: 1. Cholelithiasis. Gallbladder wall appears thickened although the measurement presented on the candace ges was within normal limits at 0.16 cm. Common bile duct diameter remain within normal limits. No ascites is definitely seen. Correlate clinically for any evidence of acute cholecystitis. 2. Possible fatty liver.
--- NOTE | 2018-04-23 10:30 | ED.PDOC ---
General ED Provider: Dr. MALACHI WOLFE Chief Complaint: Abdominal Pain Stated Complaint: abdominal pain Time Seen by Physician: 08:12 (seen with pt's nirse present at all times ) Mode of Arrival: Ambulance Information Source: Patient, EMT Exam Limitations: No limitations Primary Care Provider: JASON OLGUIN Nursing and Triage Documentation Reviewed and Agree: Yes Does patient meet sepsis criteria?: No System Inflammatory Response Syndrome: Not Applicable Sepsis Protocol: For patient's 13 years and over: Temp is 96.8 and below OR 101 and greater Pulse >90 BPM Resp >20/minute Acutely Altered Mental Status Are patient's symptoms suggestive of a new infection, such as: -Pneumonia -Skin, Soft Tissue -Endocarditis -UTI -Bone, Joint Infection -Implantable Device -Acute Abdominal Infection -Wound Infection -Meningitis -Blood Stream Catheter Infection -Unknown GI Complaint Exam - Abdominal Pain Complaint/Exam Onset: Gradual Duration: 1 week Symptoms Are: Still present Timing: Constant Initial Severity: Mild Current Severity: Mild Location of Pain: Diffuse Character: Reports: Aching Aggravating: Reports: None Alleviating: Reports: None Associated Signs and Symptoms: Denies: Diaphoresis, Fever, Cough, Chest pain, Dizziness, Back pain, Constipation, Blood in stool, Dysuria, Urinary frequency, Decreased urine output, Decreased appetite, Discharge, Nausea, Vomiting, Diarrhea, Decreased activity Related History: Reports: Similar episode AAA Risk Factors: Reports: None Cardiac Risk Factors: Reports: None Testicular Torsion Risk Factors: Reports: None Surgical Obstruction Risk Factors: Reports: None Related Surgical History: Reports: None Abdominal Findings: Present: None Differential Diagnoses: Appendicitis, Bowel Obstruction, Constipation, Diverticulitis, Pancreatitis, Pneumonia, Ureteral Stone, GB Review of Systems - Review Of Systems Constitutional: Reports: No symptoms Eyes: Reports: No symptoms Ears, Nose, Mouth, Throat: Reports: No symptoms Respiratory: Reports: No symptoms Cardiac: Reports: No symptoms GI: Reports: Abdominal pain, Poor appetite : Reports: No symptoms Musculoskeletal: Reports: No symptoms Skin: Reports: No symptoms Neurological: Reports: No symptoms Endocrine: Reports: No symptoms Hematologic/Lymphatic: Reports: No symptoms All Other Systems: Reviewed and Negative Past Medical History - Past Medical History Previously Healthy: Yes Endocrine: Reports: None Cardiovascular: Reports: None Respiratory: Reports: None Hematological: Reports: Anemia Gastrointestinal: Reports: None Genitourinary: Reports: None Neuro/Psych: Reports: None Musculoskeletal: Reports: Back Pain Cancer: Reports: None - Surgical History General Surgical History: Reports: None - Family History Family History: Reports: None - Social History Smoking Status: Current every day smoker, Light tobacco smoker Hx Substance Use: No Alcohol Screening: Occasionally Physical Exam - Physical Exam Appearance: Well-appearing, No pain distress, Well-nourished Eyes: MICHEAL, EOMI, Conjunctiva clear ENT: Ears normal, Nose normal, Oropharynx normal Respiratory: Airway patent, Breath sounds clear, Breath sounds equal, Respirations nonlabored Cardiovascular: RRR, Pulses normal, No rub, No murmur GI/: Soft, Nontender, No masses, Bowel sounds normal, No Organomegaly Musculoskeletal: Normal strength, ROM intact, No edema, No calf tenderness Skin: Warm, Dry, Normal color Neurological: Sensation intact, Motor intact, Reflexes intact, Cranial nerves intact, Alert, Oriented Psychiatric: Affect appropriate, Mood appropriate Interpretation - Radiology Interpretation Radiology Interpretation By: Radiologist Radiology Results: No acute changes Re-Evaluation - Re-Evaluation Time of Re-Evaluation: 09:30 Status: Improved Vital Signs Stable: Yes Pain Level: 0 Appearance: NAD Lungs: Clear Skin: Warm and Dry Neuro: Alert and Oriented X3 CV: RRR - Re-Evaluation Time of Re-Evaluation: 10:30 Status: Improved Vital Signs Stable: Yes Pain Level: 0 Appearance: NAD Skin: Warm and Dry Neuro: Alert and Oriented X3 CV: RRR Critical Care Note - Critical Care Note Total Time (mins): 0 Course - Course Hematology/Chemistry: 04/23/18 09:05 04/23/18 09:05 Orders, Labs, Meds: Lab Review 04/23/18 04/23/18 09:05 09:05 WBC 8.75 RBC 4.10 L Hgb 12.5 L Hct 37.0 L MCV 90.2 MCH 30.5 MCHC 33.8 RDW Coeff of Harpal 14.3 Plt Count 288 Immature Gran % (Auto) 0.6 Neut % (Auto) 69.7 Lymph % (Auto) 21.0 [place] % (Auto) 4.7 Eos % (Auto) 3.4 Baso % (Auto) 0.6 Immature Gran # (Auto) 0.1 Neut # (Auto) 6.1 Lymph # (Auto) 1.8 [place] # (Auto) 0.4 Eos # (Auto) 0.3 Baso # (Auto) 0.1 Sodium 145.0 Potassium 4.10 Chloride 113.0 H Carbon Dioxide 24.0 Anion Gap 12.10 BUN 17.0 Creatinine 0.60 Estimated GFR (MDRD) 143.00 BUN/Creatinine Ratio 28.33 Glucose 108.0 H Calcium 9.50 Total Bilirubin 0.30 AST 25.0 ALT 21.0 Alkaline Phosphatase 80.0 Total Protein 7.00 Albumin 4.30 Globulin 2.70 Albumin/Globulin Ratio 1.59 Amylase 103.0 Lipase 58.0 Orders Category Date Time Status NPO REMINDER: IMAGING ONCE CARE 04/23/18 08:03 Active AMYLASE Stat LAB 04/23/18 09:05 Completed CBC W/ AUTO DIFF Stat LAB 04/23/18 09:05 Completed COMPREHENSIVE METABOLIC PANEL Stat LAB 04/23/18 09:05 Completed LIPASE Stat LAB 04/23/18 09:05 Completed URINALYSIS C & S IF INDICATED Stat LAB 04/23/18 10:[address] ABDOMEN/PELVIS WO CONTRAST Stat RADS 04/23/18 08:02 Completed ULTRASOUND ABDOMEN, RT. UPPER QUAD [U/S ABDOMEN, RT. RADS 04/23/18 08:02 Completed UPPER QUAD] Stat Vital Signs: Temp Pulse Resp BP Pulse Ox 04/23/18 08:03 98.1 F 72 16 122/76 100 Departure - Departure Time of Disposition: 10:30 Disposition: HOME SELF-CARE Discharge Problem: Abdominal pain, Fatty liver Anemia Qualifiers: Anemia type: unspecified type Qualified Code(s): D64.9 - Anemia, unspecified Instructions: Anemia (ED), Colonoscopy (DC) Condition: Good Pt referred to PMD for follow-up: Yes IPMP verified?: No Additional Instructions: Please call your Family Physician as soon as possible to schedule a follow-up appointment.NEED FOR COLOCSCOPY DISCUSSED IN DETAIL DUE TO ANEMIA PT'S NURSE WAS PRESENT THE URGENCY EMPHASIZED Allergies/Adverse Reactions: Allergies aspirin Adverse Reaction (Verified 04/23/18 08:01) Home Medications: Ambulatory Orders Ranitidine HCl [Zantac] 150 mg PO BIDAC #60 tablet 07/07/14 Atorvastatin Calcium [Lipitor] 20 mg PO DAILY 05/21/16 Ibuprofen [Motrin] 600 mg PO Q6H PRN #30 tablet 05/21/16 Disposition Discussed With: Patient
== END 2018-04-23 10:41 | disposition home or self-care (01) ==
LOC: ED 07:58
DX: R10.9 Unspecified abdominal pain (principal); D64.9 Anemia, unspecified; K76.0 Fatty (change of) liver, not elsewhere classified; F17.210 Nicotine dependence, cigarettes, uncomplicated
CPT/HCPCS: 36415; 80053; 82150; 83690; 85025; 99283

== ENCOUNTER 2018-07-02 19:42 | Outpatient (CLI) ==
[2018-07-02 20:12] VITALS: BMI 18.1
== END 2018-07-02 19:53 | disposition critical access hospital (66) ==
LOC: AMBL 19:42
PROVIDERS: ATTEND Internal Medicine Geriatric Medicine
DX: R10.31 Right lower quadrant pain (principal); Z87.442 Personal history of urinary calculi

== ENCOUNTER 2018-07-02 20:05 | Emergency (ER) ==
[2018-07-02 20:12] VITALS: BP 120/99; TEMP 97.4; BMI 18.1
[2018-07-02] MEDS ORDERED: ZOFRAN 4 MG/2 ML IVP STA (20:29)
[2018-07-02] MEDS ORDERED: MORPHINE 4 MG/ML SYRINGE IVP STA (20:29)
[2018-07-02] MEDS ORDERED: LACTATED RINGERS 1,000 ML IV STA (20:29)
--- NOTE | 2018-07-02 20:40 | CT ---
EXAM: CT abdomen pelvis without contrast HISTORY: Right flank pain with known kidney stones COMPARISON: CT abdomen pelvis 04/23/2018 and ultrasound 04/23/2018 TECHNIQUE: Serial axial images of the abdomen pelvis were performed from the lung bases through the inferior pelvis without contrast. These were viewed in multiple planes. FINDINGS: The lung bases are clear. Evaluation is limited due to lack of contrast. The liver is unremarkable. The gallbladder is mildly distended. The adrenal glands are unremarkable. The spleen is normal. The pancreas is unremarkabl e. The right kidney demonstrates an exophytic low attenuation lesion in the superior pole measuring 3.2 cm in diameter with Hounsfield units suggestive of a cyst. Nonobstructing 0.2 cm stone is noted on the right. There is mild right hydronephrosis and hydroureter secondary to a 0.3 cm stone at the right UVJ. The kidney on the left is unremarkable. The stomach is unremarkable. The small bowel in the abdomen pelvis is unremarkable. The colon is un remarkable. Urinary bladder is partially distended. The prostate is normal. There is no free air, free fluid or lymphadenopathy. The osseous structures are unremarkable. IMPRESSION: 1. Mild right hydronephrosis and hydroureter secondary to a 0.3 cm stone in the distal ureter at the UVJ. 2. Right renal cyst. Nonobstructing renal stones are present.
--- NOTE | 2018-07-02 21:51 | ED.PDOC ---
General ED Provider: Dr. CONRAD MINOR Chief Complaint: Kidney Stone Stated Complaint: 2 day history of right flank pain not better with motrin. Has a history of kidney stones. Time Seen by Physician: 21:46 Mode of Arrival: Stretcher Information Source: Patient Exam Limitations: No limitations Primary Care Provider: JASON OLGUIN Nursing and Triage Documentation Reviewed and Agree: Yes Does patient meet sepsis criteria?: No System Inflammatory Response Syndrome: Not Applicable Sepsis Protocol: For patient's 13 years and over: Temp is 96.8 and below OR 101 and greater Pulse >90 BPM Resp >20/minute Acutely Altered Mental Status Are patient's symptoms suggestive of a new infection, such as: -Pneumonia -Skin, Soft Tissue -Endocarditis -UTI -Bone, Joint Infection -Implantable Device -Acute Abdominal Infection -Wound Infection -Meningitis -Blood Stream Catheter Infection -Unknown Musculoskeletal Complaint Exam - Back Pain Complaint/Exam Mechanism of Injury: Reports: No known trauma Onset/Duration: 2 days Symptoms Are: Still present Timing: Constant Initial Severity: Moderate Current Severity: Severe Location: Reports: Radiating (the front /groin area ) Character: Reports: Aching, Throbbing, Spasmodic Aggravating: Reports: None Alleviating: Reports: None Associated Signs and Symptoms: Reports: Flank pain Review of Systems - Review Of Systems Constitutional: Reports: No symptoms Eyes: Reports: No symptoms Ears, Nose, Mouth, Throat: Reports: No symptoms Respiratory: Reports: No symptoms Cardiac: Reports: No symptoms GI: Reports: No symptoms : Reports: No symptoms Musculoskeletal: Reports: Back pain (right flank pain ) Skin: Reports: No symptoms Neurological: Reports: No symptoms Endocrine: Reports: No symptoms Hematologic/Lymphatic: Reports: No symptoms All Other Systems: Reviewed and Negative Past Medical History - Past Medical History Previously Healthy: Yes Endocrine: Reports: None Cardiovascular: Reports: None Respiratory: Reports: None Hematological: Reports: Anemia Gastrointestinal: Reports: GERD Genitourinary: Reports: Kidney stones Neuro/Psych: Reports: None Musculoskeletal: Reports: Back Pain Cancer: Reports: None Other Pertinent Past Medical History: Low blood pressure - Surgical History General Surgical History: Reports: None - Family History Family History: Reports: None - Social History Smoking Status: Current every day smoker, Light tobacco smoker Hx Substance Use: No Alcohol Screening: Occasionally Physical Exam - Physical Exam Appearance: Ill-appearing, Thin Ill-appearing: Moderate Pain Distress: Severe Neck: Supple Respiratory: Airway patent, Breath sounds clear, Breath sounds equal, Respirations nonlabored Cardiovascular: Bradycardia GI/: Soft Musculoskeletal: Normal strength Skin: Warm, Dry Neurological: Sensation intact Psychiatric: Anxious Interpretation - Radiology Interpretation Radiology Interpretation By: Radiologist Radiology Results: Positive (3mm stone in right UVJ) Exam Interpreted: CT Scan Re-Evaluation - Re-Evaluation Time of Re-Evaluation: 22:20 Status: Improved Vital Signs Stable: Yes Pain Level: much improved and voiding well Appearance: NAD Critical Care Note - Critical Care Note Total Time (mins): 0 Course - Course Hematology/Chemistry: 07/02/18 20:45 07/02/18 20:45 Orders, Labs, Meds: Lab Review 07/02/18 07/02/18 07/02/18 20:45 20:45 22:05 WBC 9.56 RBC 4.38 L Hgb 13.2 L Hct 39.2 L MCV 89.5 MCH 30.1 MCHC 33.7 RDW Coeff of Harpal 14.3 Plt Count 312 Immature Gran % (Auto) 0.5 Neut % (Auto) 80.2 Lymph % (Auto) 13.0 [place] % (Auto) 3.6 Eos % (Auto) 2.0 Baso % (Auto) 0.7 Immature Gran # (Auto) 0.1 Neut # (Auto) 7.7 H Lymph # (Auto) 1.2 [place] # (Auto) 0.3 L Eos # (Auto) 0.2 Baso # (Auto) 0.1 Sodium 143.9 Potassium 3.53 Chloride 106.8 Carbon Dioxide 25.6 Anion Gap 15.03 BUN 17.8 Creatinine 0.75 Estimated GFR (MDRD) 111.00 BUN/Creatinine Ratio 23.73 Glucose 146.3 H Calcium 9.76 Total Bilirubin 0.31 AST 26.9 ALT 16.8 Alkaline Phosphatase 79.2 Total Protein 7.12 Albumin 4.22 Globulin 2.90 Albumin/Globulin Ratio 1.45 Amylase 83.0 Lipase 76.1 Urine Color Yellow Urine Clarity Clear Urine pH 7.0 Ur Specific [place] 1.010 Urine Protein Negative Urine Glucose (UA) Negative Urine Ketones Negative Urine Blood 2+ Urine Nitrite Negative Urine Bilirubin Negative Urine Urobilinogen 0.2 Ur Leukocyte Esterase Negative Urine Microscopic RBC 10-20 Urine Microscopic WBC 0-2 Ur Squamous Epith Cells Not present Orders Category Date Time Status BLADDER SCAN ONCE CARE 07/02/18 21:47 Active ED IV/MEDIPORT/POWERPORT .ONCE EMERGENCY 07/02/18 20:29 Active AMYLASE Stat LAB 07/02/18 20:45 Completed CBC W/ AUTO DIFF Stat LAB 07/02/18 20:45 Completed COMPREHENSIVE METABOLIC PANEL Stat LAB 07/02/18 20:45 Completed LIPASE Stat LAB 07/02/18 20:45 Completed URINALYSIS C & S IF INDICATED Stat LAB 07/02/18 22:05 Completed 0.9 % Sodium Chloride [Saline Flush] MEDS 07/02/18 20:29 Discontinued 1 syr IVF PRN PRN Morphine Sulfate [Morphine 4 mg/ml Syringe] MEDS 07/02/18 20:29 Discontinued 2 mg IVP ONCE STA Ondansetron HCl/Pf [Zofran 4 mg/2 ml] MEDS 07/02/18 20:29 Discontinued 4 mg IVP ONCE STA Ringers Lactated Solution [Lactated Ringers] 1,000 ml MEDS 07/02/18 20:29 Discontinued IV BOLUS Tamsulosin HCl [Flomax] MEDS 07/02/18 21:52 Discontinued 0.4 mg PO ONCE STA CT ABD/PEL WO RENAL STONE PROT Stat RADS 07/02/18 20:15 Completed Medications Discontinued Medications Generic Name Dose Route Start Last Admin Trade Name Freq PRN Reason Stop Dose Admin Lactated Ringer's 1,000 mls @ 1,000 mls/hr 07/02/18 20:29 07/02/18 21:31 Lactated Ringers IV 07/02/18 21:28 1,000 mls/hr BOLUS STA Administration Morphine Sulfate 2 mg 07/02/18 20:29 07/02/18 21:29 Morphine 4 Mg/Ml Syringe IVP 07/02/18 20:30 2 mg ONCE STA Administration Ondansetron HCl 4 mg 07/02/18 20:29 07/02/18 21:31 Zofran 4 Mg/2 Ml IVP 07/02/18 20:30 4 mg ONCE STA Administration Sodium Chloride 1 syr 07/02/18 20:29 Saline Flush IVF PRN PRN To flush IV Tamsulosin HCl 0.4 mg 07/02/18 21:52 07/02/18 22:00 Flomax PO 07/02/18 21:53 0.4 mg ONCE STA Administration Vital Signs: Temp Pulse Resp BP Pulse Ox 07/02/18 20:06 97.4 F L 54 L 20 120/99 H 99 Departure - Departure Time of Disposition: 22:30 Disposition: HOME SELF-CARE Discharge Problem: Kidney stone Instructions: Kidney Stones (ED) Condition: Stable Pt referred to PMD for follow-up: Yes IPMP verified?: No Additional Instructions: Strain your Urine Take Medications as prescribed Follow up with PCP in 3 days Prescriptions: Hydrocodone Bit/Acetaminophen [[place] 5-325] 1 each PO Q6HR PRN #15 tablet PRN Reason: severe pain Tamsulosin HCl [Flomax] 0.4 mg PO DAILY #10 cap.er.24h Allergies/Adverse Reactions: Allergies aspirin Adverse Reaction (Verified 07/02/18 20:11) Home Medications: Ambulatory Orders Ranitidine HCl [Zantac] 150 mg PO BIDAC #60 tablet 07/07/14 Atorvastatin Calcium [Lipitor] 20 mg PO DAILY 05/21/16 Ibuprofen [Motrin] 600 mg PO Q6H PRN #30 tablet 05/21/16 Hydrocodone Bit/Acetaminophen [[place] 5-325] 1 each PO Q6HR PRN #15 tablet Tamsulosin HCl [Flomax] 0.4 mg PO DAILY #10 cap.er.24h 07/02/18 Disposition Discussed With: Patient
[2018-07-02] MEDS ORDERED: FLOMAX PO STA (21:52)
== END 2018-07-02 22:32 | disposition home or self-care (01) ==
LOC: ED 20:05
DX: N20.0 Calculus of kidney (principal); Z87.442 Personal history of urinary calculi; F17.210 Nicotine dependence, cigarettes, uncomplicated
CPT/HCPCS: 36415; 74176; 80053; 81001; 82150; 83690; 85025; 96360; 96375; 99283